=== PATIENT | female | born 1955 | race Hispanic/Latino ===

== ENCOUNTER 2020-12-15 16:54 | Inpatient (IN) | payer MEDICARE ==
[2020-12-15] MEDS ORDERED: Ondansetron PF 4 MG/2 ML Vial ONE (17:34)
[2020-12-15] MEDS ORDERED: Morphine 4 MG/ML VIAL ONE ×3 (17:34→22:35)
[2020-12-15 17:45] LABS: #Eosinphils 0.1 thou/uL (0.0-0.7); #Neutrophils 15.8 thou/uL (1.40-6.50); %Basophils 0.1 % (0.0-1.0); %Eosinophils 0.5 % (0.0-10.0); %Lymphocytes 5.4 % (21.0-51.0); %Monocytes 5.7 % (0.0-10.0); %Neutrophils 88.3 % (42.0-75.0); Hemoglobin 13.5 g/dL (12.0-16.0); Mean Corpuscular HGB CONC 33.1 g/dL (32.0-36.0); Mean Corpuscular Hemoglobin 28.6 pg (27.0-31.0); Mean Corpuscular Volume 86.4 fL (78.0-98.0); Mean Platelet Volume 7.6 fL (7.4-10.4); Platelet Count 290 thou/uL (130-400); RBC Distribution Width 13.6 % (11.5-14.5); Red Blood Cell (RBC) Count 4.74 mill/uL (4.20-5.40); White Blood Cell (WBC) Count 17.9 thou/uL (4.8-10.8)
[2020-12-15] MEDS ORDERED: Dextrose 50% Abboject 50 ML SYRINGE SLOW IVP SCH (18:00)
[2020-12-15 18:12] LABS: ALT (SGPT) 35 U/L (8-55); AST (SGOT) 48 U/L (5-34); Albumin 4.2 g/dL (3.4-4.8); Alkaline Phosphatase 130 U/L (40-110); Anion Gap 16 mmol/L (10-20); BUN (Urea Nitrogen) 24 mg/dL (9.8-20.1); Bilirubin, Total 0.6 mg/dL (0.2-1.2); Calc. Creatinine Clearance 0 mL/min (70-130); Calcium 9.5 mg/dL (7.8-10.44); Carbon Dioxide 22 mmol/L (23-31); Chloride 106 mmol/L (98-107); Potassium 4.3 mmol/L (3.5-5.1); Protein, Total 8.2 g/dL (5.8-8.1); Sodium 140 mmol/L (136-145)
[2020-12-15 18:22] LABS: Glucose 44 mg/dL (80-115)
[2020-12-15] MEDS ORDERED: cefTRIAXone\\ROCEPHIN 2 GM VIAL ONE (20:51)
[2020-12-15] MEDS ORDERED: Dextrose 50% Abboject 50 ML SYRINGE ONE (21:20)
[2020-12-15 23:24] LABS: Bilirubin Negative (Negative); Blood, Urine Negative (Negative); Clarity Clear (Clear); Glucose, Urine (Dipstick) Greater than 1000 mg/dL (Negative); Ketone, Urine Negative (Negative); Leukocyte Negative Leu/uL (Negative); Nitrite 2+ (Negative); Protein, Urine (Dipstick) Negative (Neg-Trace); RBC/HPF None Seen HPF (0-3); Specific Gravity, Urine 1.016 (1.002-1.036); Squamous Epithelial 0-3 HPF (0-3); Urobilinogen Normal mg/dL (Less than 2); WBC/HPF 0-3 HPF (0-3); pH, Urine 5.5 (5.0-9.0)
[2020-12-15 23:26] LABS: Bacteria/HPF 2+ HPF (None Seen)
[2020-12-16] MEDS ORDERED: Dextrose 50% Abboject 50 ML SYRINGE SLOW IVP PRN (00:38)
[2020-12-16] MEDS ORDERED: Dextrose 5% in Water 1,000 ML IV PRN (00:38)
[2020-12-16] MEDS ORDERED: Morphine 2 MG/ML VIAL ONE (01:05)
[2020-12-16] MEDS ORDERED: Acetaminophen 650 MG Suppository PR PRN (01:07)
[2020-12-16] MEDS ORDERED: Ondansetron ODT 4 MG TAB SL PRN (01:45)
[2020-12-16] MEDS ORDERED: Ondansetron PF 4 MG/2 ML Vial IVP PRN (01:45)
[2020-12-16] MEDS ORDERED: Acetaminophen 325 MG TAB PO PRN (01:45)
[2020-12-16 01:52] VITALS: BMI 33.5
[2020-12-16] MEDS: Acetaminophen 325 MG TAB PO PRN ×2 (02:10→08:57)
[2020-12-16] MEDS ORDERED: Morphine 2 MG/ML VIAL SLOW IVP SCH (04:30)
[2020-12-16 04:42] LABS: #Lymphocytes 1.2 thou/uL (1.20-3.40); #Monocytes 0.7 thou/uL (0.11-0.59); #Neutrophils 10.6 thou/uL (1.40-6.50); %Basophils 0.3 % (0.0-1.0); %Eosinophils 0.3 % (0.0-10.0); %Lymphocytes 9.6 % (21.0-51.0); %Monocytes 5.3 % (0.0-10.0); %Neutrophils 84.5 % (42.0-75.0); Hemoglobin 11.6 g/dL (12.0-16.0); Mean Corpuscular HGB CONC 32.4 g/dL (32.0-36.0); Mean Corpuscular Hemoglobin 28.2 pg (27.0-31.0); Mean Platelet Volume 7.8 fL (7.4-10.4); Platelet Count 240 thou/uL (130-400); RBC Distribution Width 13.7 % (11.5-14.5); Red Blood Cell (RBC) Count 4.12 mill/uL (4.20-5.40); White Blood Cell (WBC) Count 12.6 thou/uL (4.8-10.8)
[2020-12-16 04:44] LABS: PTT 30.3 sec (22.9-36.1); Prothrombin Time 13.7 sec (12.0-14.7)
[2020-12-16] MEDS: Dextrose 5 %-0.45 % NaCl 1,000 ML IV SCH ×2 (04:46→04:51)
[2020-12-16 04:54] LABS: Lactic Acid 0.9 mmol/L (0.5-2.2)
[2020-12-16 04:58] LABS: Anion Gap 10 mmol/L (10-20); BUN (Urea Nitrogen) 19 mg/dL (9.8-20.1); Calc. Creatinine Clearance 67 mL/min (70-130); Calcium 8.5 mg/dL (7.8-10.44); Carbon Dioxide 24 mmol/L (23-31); Chloride 110 mmol/L (98-107); Glucose 105 mg/dL (80-115); Magnesium 1.8 mg/dL (1.6-2.6); Potassium 4.2 mmol/L (3.5-5.1); Sodium 140 mmol/L (136-145)
[2020-12-16 08:06] LABS: SARS-CoV-2 PCR by NAA Not Detected (NotDetected)
[2020-12-16] MEDS: Famotidine/PF 20 mg/2ml Vial SLOW IVP SCH ×2 (09:00→19:57)
[2020-12-16] MEDS: HYDROcodone/Acetaminophen 5/325 mg Tablet PO PRN ×2 (17:45→22:43)
[2020-12-16] MEDS: cefTRIAXone\\ROCEPHIN 1 GM in Sodium Chloride 0.9% 100 ML IVPB SCH (19:56)
[2020-12-17] MEDS: Famotidine/PF 20 mg/2ml Vial SLOW IVP SCH ×2 (08:24→19:37)
[2020-12-17] MEDS: HYDROcodone/Acetaminophen 5/325 mg Tablet PO PRN (10:35)
[2020-12-17] MEDS ORDERED: Dextrose 5% in Water 1,000 ML IV PRN (12:51)
[2020-12-17] MEDS ORDERED: Dextrose 50% Abboject 50 ML SYRINGE SLOW IVP PRN (12:51)
[2020-12-17] MEDS: HumaLOG 300 UNITS/3 ML VIAL SC PRN ×2 (18:21→20:04)
[2020-12-17] MEDS: cefTRIAXone\\ROCEPHIN 1 GM in Sodium Chloride 0.9% 100 ML IVPB SCH (19:37)
[2020-12-18 06:24] LABS: #Basophils 0.1 thou/uL (0.0-0.2); #Eosinphils 0.3 thou/uL (0.0-0.7); #Lymphocytes 2.3 thou/uL (1.20-3.40); #Monocytes 0.9 thou/uL (0.11-0.59); %Basophils 0.7 % (0.0-1.0); %Eosinophils 2.8 % (0.0-10.0); %Lymphocytes 19.8 % (21.0-51.0); %Monocytes 7.4 % (0.0-10.0); %Neutrophils 69.4 % (42.0-75.0); Hemoglobin 11.8 g/dL (12.0-16.0); Mean Corpuscular HGB CONC 31.6 g/dL (32.0-36.0); Mean Corpuscular Hemoglobin 27.7 pg (27.0-31.0); Mean Corpuscular Volume 87.7 fL (78.0-98.0); Mean Platelet Volume 7.8 fL (7.4-10.4); Platelet Count 220 thou/uL (130-400); RBC Distribution Width 13.5 % (11.5-14.5); Red Blood Cell (RBC) Count 4.26 mill/uL (4.20-5.40); White Blood Cell (WBC) Count 11.5 thou/uL (4.8-10.8)
[2020-12-18 06:36] LABS: Anion Gap 13 mmol/L (10-20); BUN (Urea Nitrogen) 15 mg/dL (9.8-20.1); Calc. Creatinine Clearance 79 mL/min (70-130); Calcium 8.8 mg/dL (7.8-10.44); Carbon Dioxide 25 mmol/L (23-31); Chloride 107 mmol/L (98-107); Glucose 170 mg/dL (80-115); Potassium 4.2 mmol/L (3.5-5.1); Sodium 141 mmol/L (136-145)
[2020-12-18] MEDS: Famotidine/PF 20 mg/2ml Vial SLOW IVP SCH ×2 (08:59→20:08)
[2020-12-18] MEDS: HumaLOG 300 UNITS/3 ML VIAL SC PRN ×2 (14:55→20:11)
[2020-12-18] MEDS: cefTRIAXone\\ROCEPHIN 1 GM in Sodium Chloride 0.9% 100 ML IVPB SCH (20:10)
[2020-12-18] MEDS: HYDROcodone/Acetaminophen 5/325 mg Tablet PO PRN (20:11)
[2020-12-18] MEDS: Atorvastatin Calcium 10 MG TAB PO SCH (20:11)
[2020-12-19] MEDS: HumaLOG 300 UNITS/3 ML VIAL SC PRN ×4 (05:32→20:19)
[2020-12-19] MEDS: metFORMIN XR 500 MG TAB PO SCH ×2 (09:13→09:22)
[2020-12-19] MEDS ORDERED: metFORMIN XR 500 MG TAB PO SCH (09:15)
[2020-12-19] MEDS: Gabapentin 300 MG CAP PO SCH (09:15)
[2020-12-19] MEDS: Enoxaparin Sodium 40 MG/0.4 ML SYRINGE SC SCH (09:16)
[2020-12-19] MEDS: Famotidine/PF 20 mg/2ml Vial SLOW IVP SCH ×2 (09:16→20:18)
[2020-12-19] MEDS: Lisinopril 20 MG TAB PO SCH (09:17)
[2020-12-19] MEDS: HYDROcodone/Acetaminophen 5/325 mg Tablet PO PRN ×2 (13:56→20:25)
[2020-12-19] MEDS: cefTRIAXone\\ROCEPHIN 1 GM in Sodium Chloride 0.9% 100 ML IVPB SCH (20:18)
[2020-12-19] MEDS: Atorvastatin Calcium 10 MG TAB PO SCH (20:19)
[2020-12-20] MEDS: HumaLOG 300 UNITS/3 ML VIAL SC PRN ×4 (05:31→20:49)
[2020-12-20] MEDS: Enoxaparin Sodium 40 MG/0.4 ML SYRINGE SC SCH (08:26)
[2020-12-20] MEDS: Gabapentin 300 MG CAP PO SCH (08:26)
[2020-12-20] MEDS: Famotidine/PF 20 mg/2ml Vial SLOW IVP SCH ×2 (08:27→20:47)
[2020-12-20] MEDS: metFORMIN XR 500 MG TAB PO SCH (08:27)
[2020-12-20] MEDS: Lisinopril 20 MG TAB PO SCH (09:30)
[2020-12-20] MEDS: HYDROcodone/Acetaminophen 5/325 mg Tablet PO PRN ×2 (14:58→19:09)
[2020-12-20] MEDS: cefTRIAXone\\ROCEPHIN 1 GM in Sodium Chloride 0.9% 100 ML IVPB SCH (20:47)
[2020-12-20] MEDS: Atorvastatin Calcium 10 MG TAB PO SCH (20:48)
[2020-12-20] MEDS ORDERED: Insulin Glargine 15 UNITS in Pre-Filled Syringe 1 EACH SC SCH (21:00)
[2020-12-21 05:05] LABS: #Basophils 0.1 thou/uL (0.0-0.2); #Eosinphils 0.3 thou/uL (0.0-0.7); #Lymphocytes 2.1 thou/uL (1.20-3.40); #Monocytes 0.8 thou/uL (0.11-0.59); #Neutrophils 5.6 thou/uL (1.40-6.50); %Basophils 0.6 % (0.0-1.0); %Eosinophils 3.7 % (0.0-10.0); %Lymphocytes 23.5 % (21.0-51.0); %Monocytes 9.2 % (0.0-10.0); %Neutrophils 63.1 % (42.0-75.0); Hemoglobin 11.4 g/dL (12.0-16.0); Mean Corpuscular HGB CONC 32.8 g/dL (32.0-36.0); Mean Corpuscular Hemoglobin 28.3 pg (27.0-31.0); Mean Corpuscular Volume 86.4 fL (78.0-98.0); Mean Platelet Volume 7.5 fL (7.4-10.4); Platelet Count 269 thou/uL (130-400); RBC Distribution Width 13.2 % (11.5-14.5); Red Blood Cell (RBC) Count 4.01 mill/uL (4.20-5.40); White Blood Cell (WBC) Count 8.8 thou/uL (4.8-10.8)
[2020-12-21 05:25] LABS: Anion Gap 12 mmol/L (10-20); BUN (Urea Nitrogen) 25 mg/dL (9.8-20.1); Calc. Creatinine Clearance 72 mL/min (70-130); Calcium 8.7 mg/dL (7.8-10.44); Carbon Dioxide 26 mmol/L (23-31); Chloride 103 mmol/L (98-107); Glucose 315 mg/dL (80-115); Potassium 4.6 mmol/L (3.5-5.1); Sodium 136 mmol/L (136-145)
[2020-12-21] MEDS: HumaLOG 300 UNITS/3 ML VIAL SC PRN ×4 (05:52→21:17)
[2020-12-21] MEDS: metFORMIN XR 500 MG TAB PO SCH (08:37)
[2020-12-21] MEDS: Famotidine/PF 20 mg/2ml Vial SLOW IVP SCH ×2 (08:37→21:18)
[2020-12-21] MEDS: Enoxaparin Sodium 40 MG/0.4 ML SYRINGE SC SCH (08:37)
[2020-12-21] MEDS: Gabapentin 300 MG CAP PO SCH (08:37)
[2020-12-21] MEDS: HYDROcodone/Acetaminophen 5/325 mg Tablet PO PRN (13:02)
[2020-12-21] MEDS ORDERED: Insulin Glargine 25 UNITS in Pre-Filled Syringe 1 EACH SC SCH (21:00)
[2020-12-21] MEDS: cefTRIAXone\\ROCEPHIN 1 GM in Sodium Chloride 0.9% 100 ML IVPB SCH (21:17)
[2020-12-21] MEDS: Atorvastatin Calcium 10 MG TAB PO SCH (21:18)
[2020-12-22] MEDS: HumaLOG 300 UNITS/3 ML VIAL SC PRN ×2 (05:23→14:23)
[2020-12-22] MEDS: metFORMIN XR 500 MG TAB PO SCH (08:43)
[2020-12-22] MEDS: Enoxaparin Sodium 40 MG/0.4 ML SYRINGE SC SCH (08:43)
[2020-12-22] MEDS: Gabapentin 300 MG CAP PO SCH (08:44)
[2020-12-22] MEDS: Famotidine/PF 20 mg/2ml Vial SLOW IVP SCH (08:45)
[2020-12-22] MEDS ORDERED: Polyethylene Glycol 3350 17 GM Packet PO PRN (09:08)
[2020-12-22] MEDS ORDERED: Senokot 8.6 MG TAB PO PRN (09:08)
[2020-12-22 12:26] VITALS: BP 158/83; TEMP 98.8
[2020-12-22] MEDS ORDERED: Ondansetron PF 4 MG/2 ML Vial IVP PRN (13:25)
== END 2020-12-22 15:45 | DRG 551 ==
LOC: ERS 16:54 → SURG A 12-16 00:09
PROVIDERS: ADMIT Student in an Organized Health Care Education/Training Program; ATTEND Internal Medicine
DX: S32.10XA Unspecified fracture of sacrum, initial encounter for closed fracture (principal); A41.9 Sepsis, unspecified organism; S32.592A Other specified fracture of left pubis, initial encounter for closed fracture; N39.0 Urinary tract infection, site not specified; M19.90 Unspecified osteoarthritis, unspecified site; F41.9 Anxiety disorder, unspecified; F32.9 Major depressive disorder, single episode, unspecified; R29.6 Repeated falls; E11.649 Type 2 diabetes mellitus with hypoglycemia without coma; Z20.822 Contact with and (suspected) exposure to COVID-19; W18.30XA Fall on same level, unspecified, initial encounter; Z90.710 Acquired absence of both cervix and uterus; Z98.890 Other specified postprocedural states; Z79.899 Other long term (current) drug therapy; Z79.84 Long term (current) use of oral hypoglycemic drugs
CPT/HCPCS: 36415; 36416; 71045; 72192; 80048; 80053; 81003; 81015; 83605; 83735; 85025; 85610; 85730; 87040; 87086; 87635; 93005; 96365; 96366; 96375; 96376; J0696; J1650; J1815; J2270; J2405; J3490; S0028; U0003; U0005

== ENCOUNTER 2023-06-10 09:44 | Outpatient (CLI) | payer MEDICARE | END 2023-06-10 09:45 | disposition home or self-care (01) | LOC: BICMAMMO 09:44 | PROVIDERS: ATTEND Internal Medicine | DX: N63.10 Unspecified lump in the right breast, unspecified quadrant (principal) | CPT/HCPCS: 76642; 77065; G0279 ==

== ENCOUNTER 2023-09-24 09:48 | Emergency (ER) | payer MEDICARE ==
[2023-09-24 10:15] LABS: #Eosinphils 0.2 thou/uL (0.0-0.7); #Monocytes 0.6 thou/uL (0.11-0.59); #Neutrophils 7.6 thou/uL (1.40-6.50); %Basophils 0.4 % (0.0-1.0); %Eosinophils 1.7 % (0.0-10.0); %Lymphocytes 11.3 % (21.0-51.0); %Monocytes 6.3 % (0.0-10.0); %Neutrophils 79.9 % (42.0-75.0); Hematocrit 35.8 % (36.0-47.0); Hemoglobin 11.1 g/dL (12.0-16.0); Mean Corpuscular Hemoglobin 26.7 pg (27.0-31.0); Mean Corpuscular Volume 86.1 fl (78.0-98.0); Mean Platelet Volume 9.9 fL (7.4-10.4); Platelet Count 267 10x3/uL (130-400); RBC Distribution Width 16.4 % (11.5-14.5); Red Blood Cell (RBC) Count 4.16 mill/uL (4.20-5.40); White Blood Cell (WBC) Count 9.5 10x3/uL (4.8-10.8)
[2023-09-24 10:38] LABS: ALT (SGPT) 19 U/L (8-55); AST (SGOT) 31 U/L (5-34); Albumin 4.1 g/dL (3.4-4.8); Alkaline Phosphatase 104 U/L (40-110); Anion Gap 15 mmol/L (10-20); BUN (Urea Nitrogen) 20 mg/dL (9.8-20.1); Bilirubin, Total 0.4 mg/dL (0.2-1.2); Calc. Creatinine Clearance 0 mL/min (70-130); Calcium 9.9 mg/dL (7.8-10.44); Carbon Dioxide 21 mmol/L (23-31); Chloride 107 mmol/L (98-107); Estimated GFR 80; Globulin 3.9 g/dL (2.4-3.5); Glucose 82 mg/dL (80-115); Potassium 4.1 mmol/L (3.5-5.1); Sodium 139 mmol/L (136-145)
[2023-09-24 11:17] LABS: Troponin I Less than 0.010 ng/mL (< 0.028)
[2023-09-24 12:04] LABS: Bilirubin Negative (Negative); Blood, Urine Negative (Negative); CAUTI Indications for Culture Alt mental st,lethar; Clarity Clear (Clear); Glucose, Urine (Dipstick) Normal (Negative); Ketone, Urine Negative (Negative); Leukocyte 25 Leu/uL (Negative); Nitrite Negative (Negative); Protein, Urine (Dipstick) Negative (Neg-Trace); RBC/HPF 0-3 HPF (0-3); Specific Gravity, Urine 1.008 (1.002-1.036); Squamous Epithelial 0-3 HPF (0-3); Urobilinogen Normal mg/dL (Less than 2); WBC/HPF 0-3 HPF (0-3)
[2023-09-24 12:05] LABS: Bacteria/HPF 1+ HPF (None Seen); Urine Culture Reflex No No
== END 2023-09-24 13:40 | disposition home or self-care (01) ==
LOC: ERS 09:48
DX: E11.649 Type 2 diabetes mellitus with hypoglycemia without coma (principal); E11.40 Type 2 diabetes mellitus with diabetic neuropathy, unspecified; I10 Essential (primary) hypertension; E78.5 Hyperlipidemia, unspecified; Z79.899 Other long term (current) drug therapy; Z79.84 Long term (current) use of oral hypoglycemic drugs; Z79.82 Long term (current) use of aspirin
CPT/HCPCS: 36415; 36416; 80053; 81001; 84484; 85025; 93005; 94760

== ENCOUNTER 2024-09-17 23:23 | Inpatient (IN) | payer MEDICARE, OTHER ==
[2024-09-18] MEDS ORDERED: Ondansetron ODT 4 MG TAB PO PRN (00:04)
[2024-09-18] MEDS ORDERED: Ipratropium/Albuterol 3 ML NEB NEB PRN (00:04)
[2024-09-18] MEDS ORDERED: Dextrose 5% in Water 1,000 ML IV PRN (00:04)
[2024-09-18] MEDS ORDERED: Glucagon 1 MG/ML KIT IM PRN (00:04)
[2024-09-18] MEDS ORDERED: Dextrose 50% Abboject 50 ML SYRINGE SLOW IVP PRN (00:04)
[2024-09-18] MEDS ORDERED: hydrALAZINE 20 MG/ML VIAL SLOW IVP PRN (00:04)
[2024-09-18] MEDS: Lactated Ringer's 1,000 ML IV SCH (00:40)
[2024-09-18] MEDS: Acetaminophen 325 MG TAB PO PRN (00:45)
[2024-09-18 02:12] VITALS: BMI 32.8
[2024-09-18] MEDS: Morphine 4 MG/ML VIAL SLOW IVP PRN (03:01)
[2024-09-18] MEDS: traMADol HCl 50 MG TAB PO PRN (04:21)
[2024-09-18 06:49] LABS: #Basophils Less than 0.03 10x3/uL (0.0-0.2); #Eosinophils Less than 0.03 10x3/uL (0.0-0.7); %Basophils 0.2 % (0.0-1.0); %Eosinophils 0.2 % (0.0-10.0); %Lymphocytes 10.9 % (21.0-51.0); %Monocytes 7.9 % (0.0-10.0); %Neutrophils 80.6 % (42.0-75.0); Hematocrit 28.3 % (36.0-47.0); Mean Corpuscular HGB CONC 31.8 g/dL (32.0-36.0); Mean Corpuscular Hemoglobin 27.4 pg (27.0-31.0); Mean Platelet Volume 9.9 fL (7.4-10.4); Platelet Count 218 10x3/uL (130-400); RBC Distribution Width 16.9 % (11.5-14.5); Red Blood Cell (RBC) Count 3.29 mill/uL (4.20-5.40)
[2024-09-18 07:03] LABS: Anion Gap 13 mmol/L (10-20); BUN (Urea Nitrogen) 19 mg/dL (9.8-20.1); Calc. Creatinine Clearance 76 mL/min (70-130); Calcium 8.7 mg/dL (7.8-10.44); Carbon Dioxide 24 mmol/L (23-31); Chloride 102 mmol/L (98-107); Estimated GFR 72; Glucose 175 mg/dL (80-115); Potassium 3.7 mmol/L (3.5-5.1); Sodium 135 mmol/L (136-145)
[2024-09-18] MEDS ORDERED: CEFAZOLIN 2 GM in Sodium Chloride 0.9% 100 ML IVPB SCH (07:30)
[2024-09-18] MEDS: Gabapentin 300 MG CAP PO SCH (08:50)
[2024-09-18] MEDS: Pioglitazone HCl 15 MG TAB PO SCH (08:50)
[2024-09-18] MEDS: Sertraline 100 MG TAB PO SCH (08:50)
[2024-09-18] MEDS: Insulin Glargine 30 UNITS/0.3 ML VIAL SC SCH (08:51)
[2024-09-18] MEDS ORDERED: PROPOFOL 20 ML ONE (12:04)
[2024-09-18] MEDS ORDERED: Rocuronium Bromide 10 MG/ML (10ML VIAL) ONE (12:04)
[2024-09-18] MEDS ORDERED: fentaNYL PF 100 MCG/2 ML SYRINGE ONE (12:04)
[2024-09-18] MEDS ORDERED: Lidocaine 1% PF 5 ML VIAL ONE (12:04)
[2024-09-18] MEDS ORDERED: CEFAZOLIN 2 GM VIAL ONE (12:10)
[2024-09-18] MEDS ORDERED: Midazolam HCl 2 mg/2 ml Vial ONE (12:28)
[2024-09-18] MEDS ORDERED: fentaNYL 50 mcg/mL 1 mL Vial ONE ×2 (12:28→16:13)
[2024-09-18] MEDS ORDERED: Dexmedetomidine 200 MCG/2 ML VIAL ONE (12:28)
[2024-09-18] MEDS ORDERED: Ropivacaine 0.5% HCl/PF (150 MG/30 ML VIAL) ONE (12:28)
[2024-09-18] MEDS ORDERED: Ropivacaine 2% HCl/PF (20 MG/10 ML VIAL) ONE (12:47)
[2024-09-18] MEDS ORDERED: PHENYLEPHRINE-NS 100 MCG/ML 10 ML SYRINGE ONE (13:02)
[2024-09-18] MEDS ORDERED: Dexamethasone 20 MG/5 ML VIAL ONE (13:02)
[2024-09-18] MEDS ORDERED: ePHEDrine Sulfate 50 MG/10 ML VIAL ONE (13:11)
[2024-09-18] MEDS ORDERED: Ondansetron PF 4 MG/2 ML Vial ONE (15:10)
[2024-09-18] MEDS: CEFAZOLIN 2 GM in Sodium Chloride 0.9% 100 ML IVPB SCH (20:24)
[2024-09-18] MEDS: Atorvastatin Calcium 10 MG TAB PO SCH (20:25)
[2024-09-18] MEDS: Insulin Lispro 100 UNIT/ML 10 ML VIAL SC PRN (21:42)
[2024-09-19] MEDS: Insulin Lispro 100 UNIT/ML 10 ML VIAL SC PRN (06:12)
[2024-09-19 06:37] LABS: #Basophils Less than 0.03 10x3/uL (0.0-0.2); #Eosinophils Less than 0.03 10x3/uL (0.0-0.7); %Basophils 0.1 % (0.0-1.0); %Lymphocytes 9.5 % (21.0-51.0); %Monocytes 10.8 % (0.0-10.0); Hematocrit 25.5 % (36.0-47.0); Mean Corpuscular HGB CONC 31.4 g/dL (32.0-36.0); Mean Corpuscular Hemoglobin 27.1 pg (27.0-31.0); Mean Corpuscular Volume 86.4 fL (78.0-98.0); Mean Platelet Volume 9.7 fL (7.4-10.4); Platelet Count 175 10x3/uL (130-400); Red Blood Cell (RBC) Count 2.95 mill/uL (4.20-5.40)
[2024-09-19 06:55] LABS: Anion Gap 12 mmol/L (10-20); BUN (Urea Nitrogen) 20 mg/dL (9.8-20.1); Calc. Creatinine Clearance 74 mL/min (70-130); Calcium 8.3 mg/dL (7.8-10.44); Carbon Dioxide 25 mmol/L (23-31); Chloride 103 mmol/L (98-107); Estimated GFR 69; Glucose 198 mg/dL (80-115); Potassium 3.9 mmol/L (3.5-5.1); Sodium 136 mmol/L (136-145)
[2024-09-19] MEDS: Enoxaparin 40 MG (0.4 mL) SYRINGE SC SCH (08:16)
[2024-09-19] MEDS: Polyethylene Glycol 3350 17 GM Packet PO SCH (08:16)
[2024-09-19] MEDS: Lisinopril 20 MG TAB PO SCH (08:17)
[2024-09-19] MEDS: Pantoprazole DR 40 MG TAB PO SCH (08:19)
[2024-09-19] MEDS: Aspirin 81 mg Enteric Coated Tablet PO SCH (08:19)
[2024-09-19] MEDS: Senokot S 8.6-50 MG TAB PO SCH (08:19)
[2024-09-19] MEDS: Methocarbamol 500 MG TAB PO SCH (11:05)
[2024-09-19] MEDS: Gabapentin 300 MG CAP PO SCH (16:33)
[2024-09-19 16:37] LABS: Bacteria/HPF None Seen HPF (None Seen); Bilirubin Negative (Negative); Blood, Urine Negative (Negative); CAUTI Indications for Culture Acute Hematuria; Clarity Clear (Clear); Glucose, Urine (Dipstick) 150 mg/dL (Negative); Ketone, Urine Negative (Negative); Leukocyte 75 Leu/uL (Negative); Nitrite Negative (Negative); Protein, Urine (Dipstick) Negative (Neg-Trace); RBC/HPF 0-3 HPF (0-3); Squamous Epithelial 0-3 HPF (0-3); Urobilinogen Normal mg/dL (Less than 2)
[2024-09-19 16:40] LABS: Urine Culture Reflex No No
[2024-09-19] MEDS ORDERED: Methocarbamol 500 MG TAB PO SCH (21:00)
[2024-09-19] MEDS: Promethazine HCl 25 MG/ML VIAL IM PRN (21:42)
[2024-09-20 05:10] LABS: #Basophils Less than 0.03 10x3/uL (0.0-0.2); %Basophils 0.2 % (0.0-1.0); %Eosinophils 0.8 % (0.0-10.0); %Lymphocytes 12.8 % (21.0-51.0); %Monocytes 11.3 % (0.0-10.0); %Neutrophils 74.3 % (42.0-75.0); Hematocrit 24.4 % (36.0-47.0); Hemoglobin 7.7 g/dL (12.0-16.0); Mean Corpuscular HGB CONC 31.6 g/dL (32.0-36.0); Mean Corpuscular Hemoglobin 27.2 pg (27.0-31.0); Mean Corpuscular Volume 86.2 fL (78.0-98.0); Mean Platelet Volume 9.7 fL (7.4-10.4); Platelet Count 190 10x3/uL (130-400); RBC Distribution Width 16.8 % (11.5-14.5); Red Blood Cell (RBC) Count 2.83 mill/uL (4.20-5.40)
[2024-09-20 06:00] LABS: Ferritin 163.73 ng/mL (10-291)
[2024-09-20 06:03] LABS: Anion Gap 12 mmol/L (10-20); BUN (Urea Nitrogen) 18 mg/dL (9.8-20.1); Calc. Creatinine Clearance 83 mL/min (70-130); Calcium 8.7 mg/dL (7.8-10.44); Carbon Dioxide 26 mmol/L (23-31); Chloride 105 mmol/L (98-107); Estimated GFR 80; Glucose 125 mg/dL (80-115); Iron 7 ug/dL (50-170); Iron Binding Capacity, Total 241 mcg/dL (265-497); Potassium 4.4 mmol/L (3.5-5.1); Sodium 139 mmol/L (136-145)
[2024-09-20] MEDS: Ferrous Sulfate 325 MG TAB PO SCH (09:45)
[2024-09-20] MEDS: Ascorbic Acid 500 mg Chewable Tablet PO SCH (10:22)
[2024-09-20] MEDS: tiZANidine HCl 4 MG TAB PO SCH ×2 (10:23→21:08)
[2024-09-20] MEDS: Ferrous Gluconate 324 MG TAB PO SCH (10:24)
[2024-09-21 04:56] LABS: #Basophils 0.04 10x3/uL (0.0-0.2); %Basophils 0.5 % (0.0-1.0); %Eosinophils 1.7 % (0.0-10.0); %Lymphocytes 20.3 % (21.0-51.0); %Monocytes 11.5 % (0.0-10.0); %Neutrophils 65.3 % (42.0-75.0); Hematocrit 23.8 % (36.0-47.0); Hemoglobin 7.5 g/dL (12.0-16.0); Mean Corpuscular HGB CONC 31.5 g/dL (32.0-36.0); Mean Corpuscular Volume 85.6 fL (78.0-98.0); Mean Platelet Volume 10.4 fL (7.4-10.4); Platelet Count 210 10x3/uL (130-400); RBC Distribution Width 16.9 % (11.5-14.5); Red Blood Cell (RBC) Count 2.78 mill/uL (4.20-5.40)
[2024-09-21 04:59] LABS: Anion Gap 13 mmol/L (10-20); BUN (Urea Nitrogen) 24 mg/dL (9.8-20.1); Calc. Creatinine Clearance 68 mL/min (70-130); Calcium 8.6 mg/dL (7.8-10.44); Carbon Dioxide 25 mmol/L (23-31); Chloride 105 mmol/L (98-107); Estimated GFR 62; Glucose 150 mg/dL (80-115); Potassium 4.5 mmol/L (3.5-5.1); Sodium 138 mmol/L (136-145)
[2024-09-21] MEDS: Ferrous Gluconate 324 MG TAB PO SCH (09:49)
[2024-09-22] MEDS: Lactulose 20 GM (30 mL) UDCUP PO SCH (08:58)
[2024-09-23] MEDS: Benzonatate 100 MG CAP PO PRN (01:47)
[2024-09-23] MEDS: Benzocaine/Menthol 1 LOZ LOZ PO PRN (01:47)
[2024-09-24 12:37] VITALS: BP 128/63; TEMP 98.1
[2024-09-24 14:22] VITALS: BMI 32.8
== END 2024-09-24 15:50 | DRG 493 ==
LOC: SURG B 23:23
PROVIDERS: ADMIT Specialist; ATTEND Specialist
PROC: 0QSG04Z Reposition Right Tibia with Internal Fixation Device, Open Approach (ICD-10-PCS; principal; 2024-09-18)
PROC: 0PSH04Z Reposition Right Radius with Internal Fixation Device, Open Approach (ICD-10-PCS; 2024-09-18)
PROC: 0PSK04Z Reposition Right Ulna with Internal Fixation Device, Open Approach (ICD-10-PCS; 2024-09-18)
DX: S82.51XA Displaced fracture of medial malleolus of right tibia, initial encounter for closed fracture (principal); D62 Acute posthemorrhagic anemia; S52.501A Unspecified fracture of the lower end of right radius, initial encounter for closed fracture; S52.601A Unspecified fracture of lower end of right ulna, initial encounter for closed fracture; E11.9 Type 2 diabetes mellitus without complications; M06.9 Rheumatoid arthritis, unspecified; I10 Essential (primary) hypertension; E78.5 Hyperlipidemia, unspecified; F32.A Depression, unspecified; Z79.82 Long term (current) use of aspirin; Z79.4 Long term (current) use of insulin; Z90.710 Acquired absence of both cervix and uterus; Z98.890 Other specified postprocedural states; Z79.84 Long term (current) use of oral hypoglycemic drugs; F41.9 Anxiety disorder, unspecified; Z79.899 Other long term (current) drug therapy; V89.2XXA Person injured in unspecified motor-vehicle accident, traffic, initial encounter
CPT/HCPCS: 27818; 36415; 36416; 70450; 72125; 80048; 80053; 80307; 81001; 82607; 82728; 83540; 83550; 83690; 84484; 85025; 85610; 85730; 86850; 86900; 86901; 93005; 94760; 96374; 99152; 99153; C1713; J1100; J1650; J1815; J2250; J2272; J2405; J2550; J2704; J2795; J3010; J7120